=== PATIENT | female | born 2005 | race Two or more races ===

== ENCOUNTER 2023-03-29 14:48 | Emergency (ER) | payer OTHER ==
[~2023-03-29] VITALS: Ht 172.7 cm; Wt 107.0 kg
[2023-03-29 15:36] VITALS: BP 126/94; PULSE 90; RESP 18; TEMP 99.1; O2SAT 96
[2023-03-29] MEDS ORDERED: methylPREDNISolone SOD SUCC 40 MG/ML VL IM ONE (15:45)
[2023-03-29] MEDS ORDERED: cefTRIAXone SOD 1,000 MG VL IM ONE (15:45)
[2023-03-29] MEDS ORDERED: CEPH500C PO (16:14)
[2023-03-29] MEDS ORDERED: AZIT500T66 PO (16:14)
[2023-03-29] MEDS ORDERED: LIDO2SOL26 MT (16:14)
[2023-03-29 16:44] LABS: Rapid Strep A Screen-Throat Negative
== END 2023-03-29 16:31 | disposition home or self-care (01) ==
LOC: ER 14:48
DX: J03.90 Acute tonsillitis, unspecified (principal); I88.9 Nonspecific lymphadenitis, unspecified
CPT/HCPCS: 87070; 87880; 96372; 99284; J0696; J2920

== ENCOUNTER 2024-03-10 11:35 | Inpatient (IN) | payer OTHER ==
[~2024-03-10] VITALS: Ht 172.7 cm; Wt 104.0 kg
[~2024-03-10 11:35] MED LIST: AZIT500T66 PO; CEPH500C PO; LIDO2SOL26 MT
[2024-03-10 12:16] VITALS: RESP 18
[2024-03-10] MEDS: KETOROLAC TROMETH 60MG/2ML VIAL IM ONE (12:16)
[2024-03-10 12:26] LABS: Basophils # (auto) 0 10 ^3/uL (0-0.2); Basophils % (auto) 0.4 % (0.0-2.0); Eosinophils # (auto) 0.1 10 ^3/uL (0-0.8); Eosinophils % (auto) 0.6 % (0.0-7.0); Hematocrit 39.7 % (36.0-46.0); Hemoglobin 13.4 g/dL (12.2-16.2); Lymphocytes # (auto) 1.1 10 ^3/uL (0.4-5.4); Lymphocytes % (auto) 8.9 % (10.0-50.0); Mean Corpuscular Hemoglobin 28.3 pg (28.0-32.0); Mean Corpuscular Hgb Conc. 33.9 g/dL (32.0-36.0); Mean Corpuscular Volume 83.5 fL (80.0-100.0); Monocytes # (auto) 0.7 10 ^3/uL (0-1.3); Monocytes % (auto) 5.9 % (0.0-12.0); Neutrophils # (auto) 10.2 10 ^3/uL (1.6-8.6); Neutrophils % (auto) 84.2 % (37.0-80.0); Platelet Count (auto) 294 10^3/uL (140-450); Red Blood Cells 4.75 10^6/uL (4.0-5.20); Red Cell Distribution Width 14.9 % (11.8-14.3); White Blood Cell 12.1 10^3/uL (4.4-10.8)
[2024-03-10 12:33] LABS: Chloride 106 mmol/L (98-107); Sodium 139 mmol/L (136-145)
[2024-03-10 12:34] LABS: Anion Gap 9 (5-15); Carbon Dioxide 24 mmol/L (20-30)
[2024-03-10 12:35] LABS: Calcium 9.9 mg/dL (8.7-10.4)
[2024-03-10 12:39] LABS: BUN/Creatinine Ratio 13.8 (10.0-20.0); Blood Urea Nitrogen 11 mg/dL (9-23); Glucose 106 mg/dL (74-106)
[2024-03-10 14:43] LABS: Urine Bacteria FEW /hpf (None Seen); Urine Blood 2+ /uL (Negative); Urine Clarity Turbid (Clear); Urine Color Light-Yellow (Yellow); Urine Mucus FEW (None Seen); Urine Protein, UAD 1+ (Negative); Urine Specific Gravity 1.022 (1.001-1.035); Urine Urobilinogen Normal (Negative); Urine WBC 48 /hpf (0 - 5)
[2024-03-10] MEDS ORDERED: ACETAMINOPHEN 325 MG TAB PO PRN (16:30)
[2024-03-10 17:15] LABS: Triglycerides 88 mg/dL (< 150)
[2024-03-10 17:16] LABS: LDL Cholesterol 93 mg/dL (< 100)
[2024-03-10 17:17] LABS: Cholesterol 164 mg/dL (< 200); HDL Cholesterol 59 mg/dL (40-59)
[2024-03-10] MEDS: SODIUM CHLORIDE 0.9% 1,000 ML IV ONE (20:11)
[2024-03-10] MEDS: SODIUM CHLORIDE 0.9% 1,000 ML IV SCH (20:11)
[2024-03-10] MEDS: PANTOPRAZOLE 40 MG TAB PO ONE (20:11)
[2024-03-10] MEDS: metroNIDAZOLE 500 MG TAB PO ONE (21:38)
[2024-03-10] MEDS: metroNIDAZOLE 500 MG TAB PO SCH (22:00)
[2024-03-10] MEDS: cefTRIAXone 1GM/50ML D5W 50 ML IV ONE (23:09)
[2024-03-11] MEDS: KETOROLAC TROMETH 30 MG/ML 1ML VIAL IV PRN (04:15)
[2024-03-11] MEDS: PANTOPRAZOLE 40 MG TAB PO SCH (06:18)
[2024-03-11 06:57] LABS: Basophils # (auto) 0 10 ^3/uL (0-0.2); Basophils % (auto) 0.6 % (0.0-2.0); Eosinophils # (auto) 0.1 10 ^3/uL (0-0.8); Hematocrit 31.1 % (36.0-46.0); Hemoglobin 10.6 g/dL (12.2-16.2); Lymphocytes # (auto) 1.5 10 ^3/uL (0.4-5.4); Lymphocytes % (auto) 18.5 % (10.0-50.0); Mean Corpuscular Hemoglobin 28.6 pg (28.0-32.0); Monocytes # (auto) 0.6 10 ^3/uL (0-1.3); Monocytes % (auto) 7.3 % (0.0-12.0); Neutrophils # (auto) 5.7 10 ^3/uL (1.6-8.6); Neutrophils % (auto) 72.6 % (37.0-80.0); Platelet Count (auto) 215 10^3/uL (140-450); Red Cell Distribution Width 14.5 % (11.8-14.3); White Blood Cell 7.9 10^3/uL (4.4-10.8)
[2024-03-11 07:20] LABS: Alanine Aminotransferase 9 U/L (7-40); Albumin 3.3 g/dL (3.2-4.8); Alkaline Phosphatase 56 U/L (46-116); Anion Gap 10 (5-15); BUN/Creatinine Ratio 12.9 (10.0-20.0); Blood Urea Nitrogen 8 mg/dL (9-23); Calcium 7.6 mg/dL (8.7-10.4); Carbon Dioxide 20 mmol/L (20-30); Chloride 116 mmol/L (98-107); Glucose 78 mg/dL (74-106); Potassium 2.9 mmol/L (3.5-5.1); Sodium 146 mmol/L (136-145)
[2024-03-11 07:21] LABS: Aspartate Aminotransferase < 8 U/L (13-40); Bilirubin, Total 0.3 mg/dL (0.2-1.0); Total Protein 5.3 g/dL (5.7-8.2)
[2024-03-11 08:02] VITALS: RESP 18
[2024-03-11] MEDS: ONDANSETRON HCL 4 MG/2 ML VIAL IV PRN (08:32)
[2024-03-11 08:48] VITALS: PULSE 72; RESP 16; O2SAT 97
[2024-03-11 09:18] VITALS: BP 115/59; PULSE 46; RESP 16; TEMP 98.4; O2SAT 97
[2024-03-11] MEDS: cefTRIAXone 1GM/50ML D5W 50 ML IV SCH (11:06)
[2024-03-11] MEDS: POTASSIUM CHL 20 Meq TABLET PO ONE ×2 (12:27→13:23)
[2024-03-11 14:48] VITALS: BP 130/53; PULSE 54; RESP 16; TEMP 98.1; O2SAT 99
[2024-03-11 17:13] VITALS: BP 121/68; PULSE 47; RESP 16; TEMP 98.2; O2SAT 98
[2024-03-11 22:00] VITALS: BP 127/80; PULSE 48; RESP 16; TEMP 97.5; O2SAT 98
[2024-03-12] VITALS (7 sets, daily range): BP systolic 116–129; BP diastolic 55–84; PULSE 43–78; RESP 16–17; TEMP 97.9–98.7; O2SAT 94–99
[2024-03-13 01:00] VITALS: BP 114/57; PULSE 48; RESP 16; TEMP 98.1; O2SAT 95
[2024-03-13 05:00] VITALS: BP 121/61; PULSE 44; RESP 16; TEMP 98.4; O2SAT 96
[2024-03-13 08:00] VITALS: PULSE 78; RESP 16; O2SAT 96
[2024-03-13 09:00] VITALS: BP 111/59; PULSE 76; RESP 20; TEMP 98.2; O2SAT 93
[2024-03-13] MEDS ORDERED: LEVO500T91 PO (11:02)
[2024-03-13] MEDS ORDERED: METR-344 PO (11:02)
[2024-03-13 13:00] VITALS: BP 120/72; PULSE 52; RESP 20; TEMP 98.1; O2SAT 98
== END 2024-03-13 13:27 | disposition home or self-care (01) | DRG 248 ==
LOC: ER 11:35 → OVERFLOW 16:31 → WEST WING 03-11 08:45
PROVIDERS: ADMIT Nurse Practitioner Family; ATTEND Internal Medicine
DX: A04.9 Bacterial intestinal infection, unspecified (principal); B95.1 Streptococcus, group B, as the cause of diseases classified elsewhere; E66.01 Morbid (severe) obesity due to excess calories; K29.00 Acute gastritis without bleeding; N39.0 Urinary tract infection, site not specified; Z79.899 Other long term (current) drug therapy; Z68.33 Body mass index [BMI] 33.0-33.9, adult
CPT/HCPCS: 36415; 74176; 80048; 80053; 80061; 81001; 83690; 84443; 85025; 87086; 96361; 96365; 96372; G0378; J1885; J2405

== ENCOUNTER 2024-08-21 20:04 | Emergency (ER) | payer OTHER ==
[~2024-08-21] VITALS: Ht 172.7 cm; Wt 93.5 kg
[~2024-08-21 20:04] MED LIST changes: -AZIT500T66 PO; -CEPH500C PO; +LEVO500T91 PO; -LIDO2SOL26 MT; +METR-344 PO
[2024-08-21 20:29] VITALS: BP 114/76; PULSE 80; RESP 20; TEMP 97.8; O2SAT 96
[2024-08-21 21:25] LABS: COVID19 ANTIGEN SOFIA FIA NEGATIVE (NEGATIVE); Rapid Influenza A Negative (Negative); Rapid Influenza B Negative (Negative)
[2024-08-21] MEDS ORDERED: PRED20TA2 PO (21:44)
[2024-08-21] MEDS ORDERED: ACET500T58 PO (21:44)
[2024-08-21] MEDS ORDERED: AMOX875T4 PO (21:44)
--- NOTE | 2024-08-21 21:44 | ED.PDOC ---
History of Present Illness HPI Comments 18 YEAR OLD FEMALE PRESENTS TO ER WITH COMPLAINTS OF FLU-LIKE SYMPTOMS X3 DAYS. PATIENT REPORTS THAT SHE HAS BEEN EXPERIENCING 4/10 SORE THROAT PAIN, PRODUCTIVE COUGH WITH WHITE PHLEGM AND BODY ACHES X3 DAYS. DENIES USE OF MEDICATIONS FOR CURRENT SYMPTOMS. PATIENT PRESENTS TO ER AMBULATORY ON ARRIVAL, WITH STEADY GAIT, IN NO DISTRESS. 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 ANTENNA ENGINEER Hx Family History Family History: Unknown Social History Smoker: Non-Smoker Alcohol: Denies ETOH Use Drugs: Marijuana Lives In: Home Constitutional: See HPI EENTM: See HPI Respiratory: See HPI Cardiovascular: No Symptoms Reported Gastrointestinal: No Symptoms Reported Genitourinary: No Symptoms Reported Neurological: No Symptoms Reported Musculoskeletal: No Symptoms Reported Integumentary: No Symptoms Reported Allergic/Immunocompromised: others (DENIES) Hematologic/Lymphatic: No Symptoms Reported Endocrine: No Symptoms Reported Psychiatric: No symptoms Reported Physical Exam General Appearance: No Apparent Distress, Obese HEENT: PERRL/EOMI, Pharyngeal Erythema (MILD RIGHT-SIDED TONSILLAR SWELLING/ERYTHEMA NOTED WITHOUT EXUDATES. UVULA-NORMAL), TMs Normal Neck: Full Range of Motion, Non-Tender, Normal Respiratory: Chest Non-Tender, Lungs Clear, No Accessory Muscle Use, No Respiratory Distress, Normal Breath Sounds Cardiovascular: No Murmur, No Gallop, Regular Rate/Rhythm Breast Exam: Deferred Gastrointestinal: NOT DONE Genitalia: Deferred Pelvic: Deferred Rectal: Deferred Extremities: Normal capillary refill, Normal range of motion Neurologic: Alert, removable prosthodontist II-XII nml as Tested, No Motor Deficits, Normal Affect, Normal Mood, No Sensory Deficits Cerebellar Function: Normal Reflexes: Normal Skin: Dry, Normal Color, Warm Peripheral Pulses: 2+ Radial (R), 2+ Radial (L), 2+ Brachial (R), 2+ Brachial (L) Lymphatic: No Adenopathy Was a procedure done? Was a procedure done?: No Sedation Sedation?: No Fever Differential Dx Differential Diagnosis: Pneumonia, Sepsis, Other (COVID-19, INFLUENZA) X-Ray, Labs, Meds, VS Vital Signs Date Time Temp Pulse Resp B/P (MAP) Pulse Ox O2 Delivery O2 Flow Rate FiO2 08/21/24 20:29 96 Room Air* 0 21 08/21/24 20:29 97.8 80 20 114/76 (89) 96 Lab Test 08/21/24 20:30 Range/Units Influenza Type A Antigen Negative Negative Influenza Type B Antigen Negative Negative SARS-CoV-2 Antigen (Rapid) Negative NEGATIVE SWAB RESULTS REVIEWED-NEGATIVE PATIENT TOLERATING P.O. INTAKE WELL AND IN NO DISTRESS PRIOR TO DISCHARGE ADVISED TO DRINK PLENTY OF FLUIDS ADVISED TO FOLLOW UP WITH PCP IN 1-2 DAYS PATIENT VERBALIZED UNDERSTANDING AND AGREEABLE WITH CURRENT PLAN OF CARE ADVISED TO RETURN TO ER IMMEDIATELY IF SYMPTOMS WORSEN Time of 1ST Reevaluation: 21:20 Reevaluation 1ST: N/A Patient Education/Counseling: Diagnosis, Treatment, Prognosis, Need For Follow Up Family Education/Counseling: No Family Present Departure 1 Departure Time of Disposition: 21:42 Impression: Primary Impression: Upper respiratory infection Qualified Codes: J06.9 - Acute upper respiratory infection, unspecified Disposition: HOME / SELF CARE / HOMELESS Condition: Stable e-Prescriptions Prednisone (Prednisone) 20 Mg Tab 20 MG PO BID for 5 Days, #10 TAB 0 Refills Prov: FILI MARIE 08/21/24 Amoxicillin & Pot Clavulanate (Amoxicillin/Potassium Cla) 875 Mg Tab 1 TAB PO BID for 7 Days, #14 TAB 0 Refills Prov: FILI MARIE 08/21/24 Acetaminophen (Acetaminophen) 500 Mg Tab 500 MG PO Q4HPRN, #30 TAB 0 Refills Prov: FILI MARIE 08/21/24 Discharged With: Self Critical Care Note Critical Care Time?: No Stability Stability form required: No Heart Score Heart Score: Heart Score Response (Comments) Value History N/A 0 EKG N/A 0 Age N/A 0 Risk Factors N/A 0 Troponin N/A 0 Total 0 FILI MARIE Aug 21, 2024 21:44
== END 2024-08-21 22:13 | disposition home or self-care (01) ==
LOC: ER 20:04
DX: J06.9 Acute upper respiratory infection, unspecified (principal); Z20.822 Contact with and (suspected) exposure to COVID-19
CPT/HCPCS: 36415; 87426; 87804

== ENCOUNTER 2024-09-11 22:15 | Emergency (ER) | payer OTHER ==
[~2024-09-11] VITALS: Ht 172.7 cm; Wt 91.7 kg
[~2024-09-11 22:15] MED LIST changes: +ACET500T58 PO; +AMOX875T4 PO; +PRED20TA2 PO
[2024-09-11 23:40] VITALS: BP 102/53; PULSE 90; RESP 18; TEMP 98.2; O2SAT 96
[2024-09-12] MEDS ORDERED: FEXO-42 PO (01:09)
--- NOTE | 2024-09-12 01:09 | ED.PDOC ---
History of Present Illness(SKN HPI Comments Pt presents to the ER due to rash to the lips and chin. Pt reports skin irritation has been occurring over the last 4 months. Pt states flare ups occur when she experiences stress at work. Pt reports taking Benadryl and using Vaseline with no relief in symptoms. Pt denies SOB/CP or throat irritation. Chief Complaint: Rash Time Seen by MD: 22:40 Primary Care Provider: n/a History of Present Illness: Nurses Notes, Medications, Allergies Allergies: Coded Allergies: NO KNOWN ALLERGIES (Unverified , 03/29/23) Home Meds Active Scripts Fexofenadine Hydrochloride (MALU ALLERGY) 180 Mg Tab, 1 TAB PO DAILY for 14 Days, #14 TAB Prov:SARAH RYDER 09/12/24 Prednisone (Prednisone) 20 Mg Tab, 20 MG PO BID for 5 Days, #10 TAB 0 Refills Prov:FILI MARIE 08/21/24 Amoxicillin & Pot Clavulanate (Amoxicillin/Potassium Cla) 875 Mg Tab, 1 TAB PO BID for 7 Days, #14 TAB 0 Refills Prov:FILI MARIE 08/21/24 Acetaminophen (Acetaminophen) 500 Mg Tab, 500 MG PO Q4HPRN, #30 TAB 0 Refills Prov:FILI MARIE 08/21/24 Metronidazole (Flagyl) 500 Mg Tab, 1 TAB PO TID, #21 TAB Prov:LAMAR JOSÉ MD 03/13/24 Levofloxacin Hemihydrate (LEVAQUIN 500 MG) 500 Mg Tab, 1 TAB PO DAILY, #7 TAB Prov:LAMAR JOSÉ MD 03/13/24 Information Source: Patient Mode of Arrival: Ambulatory Past Medical History PAST MEDICAL HISTORY: Denies Surgical History: Denies all surgeries 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 Family History Family History: Unknown Social History Smoker: Non-Smoker Alcohol: Denies ETOH Use Drugs: Marijuana Lives In: Home Constitutional: denies: chills, diaphoresis, fatigue, fever, malaise, sweats, weakness, others EENTM: denies: blurred vision, double vision, ear bleeding, ear discharge, ear drainage, ear pain, ear ringing, eye pain, eye redness, hearing loss, mouth pain, mouth swelling, nasal discharge, nose bleeding, nose congestion, nose pain, photophobia, tearing, throat pain, throat swelling, voice changes, others Respiratory: denies: cough, hemoptysis, orthopnea, SOB at rest, shortness of breath, SOB with excertion, stridor, wheezing, others Cardiovascular: denies: chest pain, dizzy spells, diaphoresis, Dyspnea on exertion, edema, irregular heart beat, left arm pain, lightheadedness, palpitations, PND, syncope, others Gastrointestinal: denies: abdomen distended, abdominal pain, blood streaked bowels, constipated, diarrhea, dysphagia, difficulty swallowing, hematemesis, melena, nausea, poor appetite, poor fluid intake, rectal bleeding, rectal pain, vomiting, others Genitourinary: denies: abnormal vagina bleeding, burning, dyspareunia, dysuria, flank pain, frequency, hematuria, incontinence, pain, , vagina discharge, urgency, others Neurological: denies: dizziness, fainting, headache, left sided numbness, left sided weakness, numbness, paresthesia, pre-existing deficit, right sided numbness, right sided weakness, seizure, speech problems, tingling, tremors, weakness, others Musculoskeletal: denies: back pain, gout, joint pain, joint swelling, muscle pain, muscle stiffness, neck pain, others Integumetry: denies: bruises, change in color, change in hair/nails, dryness, laceration, lesions, lumps, rash, wounds, others Allergic/Immunocompromised: denies: Difficulty Healing, Frequent Infections, Hives, Itching, others Hematologic/Lymphatic: denies: anemia, blood clots, easy bleeding, easy bruising, swollen glands, others Endocrine: denies: excessive hunger, excessive sweating, excessive thirst, excessive urination, flushing, intolerance to cold, intolerance to heat, unexplained weight gain, unexplained weight loss, others Psychiatric: denies: anxiety, bipolar disorder, depression, hopeless, panic disorder, schizophrenia, sleepless, suicidal, others Physical Exam General Appearance: No Apparent Distress, Normal HEENT: Pharynx Normal Neck: Full Range of Motion, Non-Tender Respiratory: Chest Non-Tender, Lungs Clear, No Accessory Muscle Use, No Respiratory Distress, Normal Breath Sounds Cardiovascular: No Edema, No JVD, No Murmur, No Gallop, Normal Peripheral Pulses, Regular Rate/Rhythm Breast Exam: Deferred Gastrointestinal: No Organomegaly, Non Tender, No Pulsatile Mass, Normal Bowel Sounds, Soft Genitalia: Deferred Pelvic: Deferred Rectal: Deferred Extremities: Normal capillary refill, Normal inspection, Normal range of motion, Non-tender, No pedal edema Musculoskeletal : Apperance: Normal Neurologic: Alert, bobbin cleaner hand II-XII nml as Tested, No Motor Deficits, Normal Affect, Normal Mood, No Sensory Deficits Cerebellar Function: Normal Reflexes: Normal Skin: Dry, Normal Color, Rash (ERYTHEMIC MACULAR RASH AROUND OPENING OF MOUTH CHEEK NO NOTED EXCORIATIONS OR OPEN LESIONS OR DRAINAGE NOT WARMTH TO TOUCH BLANCHABLE), Warm Lymphatic: No Adenopathy Was a procedure done? Was a procedure done?: No Differential Diagnosis (INTG) Differential Diagnosis: Atopic dermatitis, Candidiasis, Cellulitis, Impetigo, Rosacea, Scabies, Tinea X-Ray, Labs, Meds, VS Vital Signs Date Time Temp Pulse Resp B/P (MAP) Pulse Ox O2 Delivery O2 Flow Rate FiO2 09/11/24 23:40 98.2 90 18 102/53 (69) 96 98.2 09/11/24 22:38 98.2 90 18 102/53 (69) 96 98.2 Current Medications Medications (Trade) Dose Ordered Sig/Nessa Route Start Time Stop Time Status Last Admin Dexamethasone Sodium Phosphate (Decadron Injection) 10 mg ONCE ONCE IM 09/12/24 01:15 09/12/24 01:16 DC 09/12/24 01:14 X-Ray, Labs, Meds, VS Comment PATIENT GIVEN DECADRON 10 MG IM. ALLERGIC IN NATURE PRESCRIBED MALU TIMES 14 DAYS ADVISED TO FOLLOW UP WITH HER PCP IN 1-2 DAYS CONSIDER ALLERGY TESTING. TAKE MEDICATIONS PRESCRIBED SIDE EFFECTS DISCUSSED INCREASE P.O. FLUIDS WITH ELECTROLYTES AVOID POSSIBLE ALLERGENS FOODS THE YOU MAY BE ALLERGIC TO. 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
[2024-09-12] MEDS: DexAMETHasone SOD PHOS 10MG/1ML VIAL INJ IM ONE (01:14)
== END 2024-09-12 01:20 | disposition home or self-care (01) ==
LOC: ER 22:15
DX: T78.49XA Other allergy, initial encounter (principal); L50.9 Urticaria, unspecified; X58.XXXA Exposure to other specified factors, initial encounter
CPT/HCPCS: 96372; 99283; J1100

== ENCOUNTER 2024-10-31 23:03 | Emergency (ER) | payer OTHER ==
[~2024-10-31] VITALS: Ht 172.7 cm; Wt 101.0 kg
[2024-11-01 00:02] VITALS: BP 109/59; PULSE 89; RESP 18; TEMP 98.7; O2SAT 96
--- NOTE | 2024-11-01 00:11 | ED.PDOC ---
Back pain HPI HPI Comments 18-year-old female presents to ER with complaints of back pain x6 days. 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 She rates her current pain an 8/10 diffuse to lower lumbar region with radiation towards her abdomen. Notes that she has been taking ibuprofen for her pain with slight relief. Patient presents to ER ambulatory on arrival, with steady gait, in no distress and states that she does not want current ER visit filed under workman's comp. Denies fever, body aches, chills, night sweats, chest pain, nausea/vomiting, numbness/tingling, changes in urination/BM or any further symptoms/complaints Chief Complaint: Back Pain Time Seen by MD: 23:12 Primary Care Provider: UNKNOWN Reviewed Notes: Nurses Notes, Medications, Allergies Allergies: Coded Allergies: NO KNOWN ALLERGIES (Unverified , 03/29/23) Home Meds Active Scripts Prednisone (Prednisone) 20 Mg Tab, 20 MG PO BID for 5 Days, #10 TAB 0 Refills Prov:FILI MARIE 08/21/24 Amoxicillin & Pot Clavulanate (Amoxicillin/Potassium Cla) 875 Mg Tab, 1 TAB PO BID for 7 Days, #14 TAB 0 Refills Prov:FILI MARIE 08/21/24 Acetaminophen (Acetaminophen) 500 Mg Tab, 500 MG PO Q4HPRN, #30 TAB 0 Refills Prov:FILI MARIE 08/21/24 Metronidazole (Flagyl) 500 Mg Tab, 1 TAB PO TID, #21 TAB Prov:LAMAR JOSÉ MD 03/13/24 Levofloxacin Hemihydrate (LEVAQUIN 500 MG) 500 Mg Tab, 1 TAB PO DAILY, #7 TAB Prov:LAMAR JOSÉ MD 03/13/24 Information Source: Patient Mode of Arrival: Ambulatory Past Medical History PAST MEDICAL HISTORY: Denies Surgical History: Denies all surgeries 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" Family History Family History: Unknown Social History Smoker: Non-Smoker Alcohol: Denies ETOH Use Drugs: Marijuana Lives In: Home Constitutional: denies: chills, diaphoresis, fatigue, fever, malaise, sweats, weakness, others EENTM: denies: blurred vision, double vision, ear bleeding, ear discharge, ear drainage, ear pain, ear ringing, eye pain, eye redness, hearing loss, mouth pain, mouth swelling, nasal discharge, nose bleeding, nose congestion, nose pain, photophobia, tearing, throat pain, throat swelling, voice changes, others Respiratory: denies: cough, hemoptysis, orthopnea, SOB at rest, shortness of breath, SOB with excertion, stridor, wheezing, others Cardiovascular: denies: chest pain, dizzy spells, diaphoresis, Dyspnea on exertion, edema, irregular heart beat, left arm pain, lightheadedness, palpitations, PND, syncope, others Gastrointestinal: reports: others (As stated in HPI) Genitourinary: denies: abnormal vagina bleeding, burning, dyspareunia, dysuria, flank pain, frequency, hematuria, incontinence, pain, , vagina discharge, urgency, others Neurological: denies: dizziness, fainting, headache, left sided numbness, left sided weakness, numbness, paresthesia, pre-existing deficit, right sided numbness, right sided weakness, seizure, speech problems, tingling, tremors, weakness, others Musculoskeletal: reports: others (As stated in HPI) Integumetry: denies: bruises, change in color, change in hair/nails, dryness, laceration, lesions, lumps, rash, wounds, others Allergic/Immunocompromised: denies: Difficulty Healing, Frequent Infections, Hives, Itching, others Hematologic/Lymphatic: denies: anemia, blood clots, easy bleeding, easy bruising, swollen glands, others Endocrine: denies: excessive hunger, excessive sweating, excessive thirst, excessive urination, flushing, intolerance to cold, intolerance to heat, unexplained weight gain, unexplained weight loss, others Psychiatric: denies: anxiety, bipolar disorder, depression, hopeless, panic disorder, schizophrenia, sleepless, suicidal, others Physical Exam General Appearance: No Apparent Distress, Obese HEENT: PERRL/EOMI Neck: Full Range of Motion, Non-Tender, Normal Respiratory: Chest Non-Tender, Lungs Clear, No Accessory Muscle Use, No Respiratory Distress, Normal Breath Sounds Cardiovascular: No Murmur, No Gallop, Regular Rate/Rhythm Breast Exam: Deferred Gastrointestinal: No Organomegaly, Non Tender, No Pulsatile Mass, Normal Bowel Sounds, Soft Genitalia: Deferred Pelvic: Deferred Rectal: Deferred Extremities: Normal capillary refill, Normal range of motion Musculoskeletal : Extremity Location: Back (TTP to bilateral lower lumbar paraspinals noted. 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 Was a procedure done?: No Sedation Sedation?: No Back Pain Differential Dx Differential Diagnosis: Fracture, Urolithiasis, Other (Neurovascular injury) X-Ray, Labs, Meds, VS Vital Signs Date Time Temp Pulse Resp B/P (MAP) Pulse Ox O2 Delivery O2 Flow Rate FiO2 11/01/24 00:02 89 18 96 Room Air 11/01/24 00:02 98.7 89 18 109/59 (76) 96 98.7 10/31/24 23:15 98.7 89 18 109/59 (76) 96 98.7 Current Medications Medications (Trade) Dose Ordered Sig/Nessa Route Start Time Stop Time Status Last Admin Ketorolac Tromethamine (Toradol Injection) 60 mg ONCE ONCE IM 11/01/24 00:15 11/01/24 00:16 DC 11/01/24 00:37 PATIENT: ROWENA TENA PROMISEACCT: [id number]: [id number] : 2005 LOC: ER ROOM / BED: / AGE / SEX: 18 / F ADM STATUS: REG ER SERVICE 0004 ORDERING PHYSICIAN: FILI MARIE PROCEDURE(s): LUMB2 - LUMBAR SPINE 3 VIEW REASON: lumbar back pain ORDER NUMBER(s): [id number], ACCESSION NUMBER(s): [id number] EXAMINATIONS: 3 views of the lumbar spine CLINICAL HISTORY: lumbar back pain COMPARISON: None Findings and impression: Mild S-shaped lumbar scoliosis which may be positional or secondary to muscular spasm. No grossly displaced fractures or subluxations identified. Vertebral body heights appear maintained. The sacroiliac joints appear symmetric. If symptoms persist, follow-up MRI may be considered to further evaluate. ATED BY: AIDAN NUNES MD DICTATED DATE/TIME: 11/01/2447 SIGNED BY: AIDAN NUNES MD SIGNED DATE/TIME: 11/01/2447 CC: waiver signed Toradol 60 mg IM ordered Lumbar x-ray reviewed Patient reported improvement in symptoms and in no distress prior to discharge Advised on rest/no strenuous activity Patient again stated that she does not want current ER visit filed under workman's comp Advised to follow up with PCP in 1-2 days Patient verbalized understanding and agreeable with current plan of care Advised to return to ER immediately if symptoms worsen Images Reviewed?: Images reviewed and evaluated by me Time of 1ST Reevaluation: 23:54 Reevaluation 1ST: N/A Patient Education/Counseling: Diagnosis, Treatment, Prognosis, Need For Follow Up Family Education/Counseling: No Family Present Departure 1 Departure Time of Disposition: 00:10 Impression: Primary Impression: Lumbar strain Qualified Codes: S39.012A - Strain of muscle, fascia and tendon of lower ba ck, initial encounter Disposition: HOME / SELF CARE / HOMELESS Condition: Stable e-Prescriptions Ibuprofen (Ibuprofen) 800 Mg Tab 1 TAB PO TID PRN, #30 TAB 0 Refills Prov: FILI MARIE 11/01/24 Cyclobenzaprine HCl (Cyclobenzaprine Hydrochlo) 5 Mg Tab 5 MG PO QHSP, #14 TAB 0 Refills Prov: FILI MARIE 11/01/24 Discharged With: Self Critical Care Note Critical Care Time?: No Stability Stability form required: No Heart Score Heart Score: Heart Score Response (Comments) Value History N/A 0 EKG N/A 0 Age N/A 0 Risk Factors N/A 0 Troponin N/A 0 Total 0 FILI MARIE November 01, 2024 00:11
[2024-11-01] MEDS: KETOROLAC TROMETH 60MG/2ML VIAL IM ONE (00:37)
--- NOTE | 2024-11-01 00:50 | DVH ---
EXAMINATIONS: 3 views of the lumbar spine CLINICAL HISTORY: lumbar back pain COMPARISON: None Findings and impression: Mild S-shaped lumbar scoliosis which may be positional or secondary to muscular spasm. No grossly displaced fractures or subluxations identified. Vertebral body heights appear maintained. The sacroiliac joints appear symmetric. If symptoms persist, follow-up MRI may be considered to further evaluate.
[2024-11-01] MEDS ORDERED: CYCL-614 PO (00:55)
[2024-11-01] MEDS ORDERED: IBUP-1456 PO (00:55)
== END 2024-11-01 01:31 | disposition home or self-care (01) ==
LOC: ER 23:03
DX: S39.012A Strain of muscle, fascia and tendon of lower back, initial encounter (principal); X58.XXXA Exposure to other specified factors, initial encounter; Y93.89 Activity, other specified; Y92.89 Other specified places as the place of occurrence of the external cause; Y99.8 Other external cause status
CPT/HCPCS: 72100; 96372; 99283; J1885; 81001; 81025

== ENCOUNTER 2024-12-07 02:12 | Emergency (ER) | payer OTHER ==
[~2024-12-07 02:12] MED LIST changes: +CYCL-614 PO; +IBUP-1456 PO
[2024-12-07 03:16] VITALS: BP 136/78; PULSE 70; RESP 20; TEMP 98.3; O2SAT 96
[2024-12-07] MEDS ORDERED: KETOROLAC TROMETH 30 MG/ML 1ML VIAL IV ONE (03:30)
[2024-12-07] MEDS ORDERED: SODIUM CHLORIDE 0.9% 1,000 ML IV ONE (03:30)
[2024-12-07] MEDS ORDERED: ONDANSETRON HCL 4 MG/2 ML VIAL IV ONE (03:30)
[2024-12-07 03:51] LABS: Basophils # (auto) 0.1 10 ^3/uL (0-0.2); Basophils % (auto) 0.5 % (0.0-2.0); Eosinophils # (auto) 0.4 10 ^3/uL (0-0.8); Eosinophils % (auto) 3.1 % (0.0-7.0); Hemoglobin 14.2 g/dL (12.2-16.2); Lymphocytes # (auto) 0.7 10 ^3/uL (0.4-5.4); Lymphocytes % (auto) 5.6 % (10.0-50.0); Mean Corpuscular Hemoglobin 28.3 pg (28.0-32.0); Mean Corpuscular Hgb Conc. 33.1 g/dL (32.0-36.0); Mean Corpuscular Volume 85.6 fL (80.0-100.0); Monocytes # (auto) 0.4 10 ^3/uL (0-1.3); Monocytes % (auto) 3.7 % (0.0-12.0); Neutrophils # (auto) 10.2 10 ^3/uL (1.6-8.6); Neutrophils % (auto) 87.1 % (37.0-80.0); Nucleated Red Blood Cells % 0.1 %; Platelet Count (auto) 222 10^3/uL (140-450); Red Blood Cells 5.02 10^6/uL (4.0-5.20); Red Cell Distribution Width 13.9 % (11.8-14.3); White Blood Cell 11.7 10^3/uL (4.4-10.8)
[2024-12-07 04:05] LABS: Alanine Aminotransferase 22 U/L (7-40); Albumin 4.8 g/dL (3.2-4.8); Alkaline Phosphatase 77 U/L (46-116); Anion Gap 11 (5-15); Aspartate Aminotransferase 18 U/L (<34); BUN/Creatinine Ratio 12.2 (10.0-20.0); Blood Urea Nitrogen 9 mg/dL (9-23); Calcium 9.5 mg/dL (8.7-10.4); Carbon Dioxide 25 mmol/L (20-31); Chloride 104 mmol/L (98-107); Glucose 92 mg/dL (74-106); Potassium 3.6 mmol/L (3.5-5.1); Sodium 140 mmol/L (136-145); Total Protein 7.6 g/dL (5.7-8.2)
[2024-12-07 04:06] LABS: Bilirubin, Total 0.6 mg/dL (0.2-1.0)
--- NOTE | 2024-12-07 04:06 | ED.PDOC ---
[facility] HPI Comments T CAME TO THE ER WITH CC OF PELVIC PAIN, PT STATED SHE HAS BEEN BLEEDING VERY HEAVY FOR 13 DAYS BUT IS UNABLE TO RECALL HOW MANY [place] SHE IS GOING THOUGH IN AN HOUR, SHE WAS SEEN AT [facility] ON THE AND DX WITH AN OVARIAN CYST. PT STATES SHE IS ALWAYS NAUSOUS BUT HAD 1 EPISODE OF VOMITING TODAY, PT REPORTS FEELING PINS AND NEEDLES ALL OVER HANDS AND WRIST, FATIGUE, HOT ABDOMINAL PAIN THAT TRAVELS TO THE PELVIS, AND SOB X1DAY. SPO2 96% ON RA, VSS. PT STATES, "MY BODY CANT HANDLE THIS, I DONT BLEED HEAVY, I BLEED FOR 4 DAYS LIGHTLY " PT IS A&OX4, RR EVEN AND REGULAR NO DISTRESS NOTED AT THIS TIME Chief Complaint: Pelvic Pain Time Seen by MD: 02:16 Reviewed Notes: Nurses Notes, Medications, Allergies Allergies: Coded Allergies: NO KNOWN ALLERGIES (Unverified , 03/29/23) Home Meds Active Scripts Ibuprofen (Ibuprofen) 800 Mg Tab, 1 TAB PO TID PRN, #30 TAB 0 Refills Prov:FILI MARIE 11/01/24 Cyclobenzaprine HCl (Cyclobenzaprine Hydrochlo) 5 Mg Tab, 5 MG PO QHSP, #14 TAB 0 Refills Prov:FILI MARIE 11/01/24 Prednisone (Prednisone) 20 Mg Tab, 20 MG PO BID for 5 Days, #10 TAB 0 Refills Prov:FILI MARIE 08/21/24 Amoxicillin & Pot Clavulanate (Amoxicillin/Potassium Cla) 875 Mg Tab, 1 TAB PO BID for 7 Days, #14 TAB 0 Refills Prov:FILI MARIE 08/21/24 Acetaminophen (Acetaminophen) 500 Mg Tab, 500 MG PO Q4HPRN, #30 TAB 0 Refills Prov:FILI MARIE 08/21/24 Metronidazole (Flagyl) 500 Mg Tab, 1 TAB PO TID, #21 TAB Prov:LAMAR JOSÉ MD 03/13/24 Levofloxacin Hemihydrate (LEVAQUIN 500 MG) 500 Mg Tab, 1 TAB PO DAILY, #7 TAB Prov:LAMAR JOSÉ MD 03/13/24 Information Source: Patient Past Medical History PAST MEDICAL HISTORY: Denies Surgical History: Denies all surgeries EXERCISER HORSE History: Denies all EXERCISER HORSE Hx Family History Family History: Unknown Social History Smoker: Non-Smoker Alcohol: Denies ETOH Use Drugs: Marijuana Lives In: Home Physical Exam General Appearance: No Apparent Distress, Normal HEENT: Pharynx Normal Neck: Full Range of Motion, Non-Tender Respiratory: Lungs Clear, No Respiratory Distress, Normal Breath Sounds Cardiovascular: No Murmur, Normal Peripheral Pulses, Regular Rate/Rhythm Breast Exam: Deferred Gastrointestinal: No Organomegaly, Non Tender, No Pulsatile Mass, Normal Bowel Sounds, Soft Genitalia: Deferred Pelvic: Deferred Rectal: Deferred Extremities: Normal range of motion, Non-tender, No pedal edema Musculoskeletal : Apperance: Normal Neurologic: Alert, No Motor Deficits, Normal Affect, Normal Mood, No Sensory Deficits Cerebellar Function: Normal Reflexes: Normal Skin: Dry, Normal Color, Warm Lymphatic: No Adenopathy Was a procedure done? Was a procedure done?: No Differential Diagnosis (EXERCISER HORSE) Vaginal Bleeding: Blood Loss Anemia, Hormonal, PID, UTI X-Ray, Labs, Meds, VS Vital Signs Date Time Temp Pulse Resp B/P (MAP) Pulse Ox O2 Delivery O2 Flow Rate FiO2 12/07/24 03:16 98.3 70 20 136/78 (97) 96 98.3 Lab Test 12/07/24 03:25 Range/Units White Blood Count 11.7 H 4.4-10.8 10^3/uL Red Blood Count 5.02 4.0-5.20 10^6/uL Hemoglobin 14.2 12.2-16.2 g/dL Hematocrit 43.0 36.0-46.0 % Mean Corpuscular Volume 85.6 80.0-100.0 fL Mean Corpuscular Hemoglobin 28.3 28.0-32.0 pg Mean Corpuscular Hemoglobin Concent 33.1 32.0-36.0 g/dL Red Cell Distribution Width 13.9 11.8-14.3 % Platelet Count 222 140-450 10^3/uL Mean Platelet Volume 9.4 6.9-10.8 fL Neutrophils (%) (Auto) 87.1 H 37.0-80.0 % Lymphocytes (%) (Auto) 5.6 L 10.0-50.0 % Monocytes (%) (Auto) 3.7 0.0-12.0 % Eosinophils (%) (Auto) 3.1 0.0-7.0 % Basophils (%) (Auto) 0.5 0.0-2.0 % Neutrophils # (Auto) 10.2 H 1.6-8.6 10 ^3/uL Lymphocytes # (Auto) 0.7 0.4-5.4 10 ^3/uL Monocytes # (Auto) 0.4 0-1.3 10 ^3/uL Eosinophils # (Auto) 0.4 0-0.8 10 ^3/uL Basophils # (Auto) 0.1 0-0.2 10 ^3/uL Nucleated Red Blood Cells 0.1 % Sodium Level 140 136-145 mmol/L Potassium Level 3.6 3.5-5.1 mmol/L Chloride Level 104 98-107 mmol/L Carbon Dioxide Level 25 20-31 mmol/L Anion Gap 11 5-15 Blood Urea Nitrogen 9 9-23 mg/dL Creatinine 0.74 0.550-1.02 mg/dL Glomerular Filtration Rate Calc 118 >90 mL/min BUN/Creatinine Ratio 12.2 10.0-20.0 Serum Glucose 92 74-106 mg/dL Calcium Level 9.5 8.7-10.4 mg/dL Total Bilirubin 0.6 0.2-1.0 mg/dL Aspartate Amino Transferase (AST) 18 <34 U/L Alanine Aminotransferase (ALT) 22 7-40 U/L Alkaline Phosphatase 77 46-116 U/L C-Reactive Protein High Sensitivity 3.54 H <1.0 mg/dL Total Protein 7.6 5.7-8.2 g/dL Albumin 4.8 3.2-4.8 g/dL Thyroid Stimulating Hormone (TSH) 2.25 0.55-4.78 uIU/mL X-Ray, Labs, Meds, VS Comment PT CAME UP TO WINDOW STATING SHE WOULD LIKE TO LEAVE TO SEE HER PRIMARY CARE DOCTOR INSTEAD OF BEING TREATED HERE, WHILE GETTING AMA FORM PT YELLED AT THIS PROVIDER AND WALKED OUT OF ER GIO CODY SIGNING AMA FORM. 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
[2024-12-07 04:31] LABS: CRP High Sensitivity 3.54 mg/dL (<1.0)
== END 2024-12-07 03:31 | disposition left against medical advice (07) ==
LOC: ER 02:12
DX: R10.2 Pelvic and perineal pain (principal); F12.90 Cannabis use, unspecified, uncomplicated; Z79.899 Other long term (current) drug therapy
CPT/HCPCS: 36415; 80053; 84443; 85025; 86141